=== PATIENT | female | born 1975 | race Caucasian/White ===

== ENCOUNTER 2018-10-16 07:11 | Day surgery (SDC) | payer BC ==
[~2018-10-16] VITALS: Ht 175.3 cm; Wt 78.0 kg
[2018-10-16] VITALS (8 sets, daily range): BP systolic 101–129; BP diastolic 58–77; PULSE 72–88; RESP 18–23; Ht 175.3 cm; Wt 78.0 kg
[~2018-10-16 07:11] MED LIST: AMITRIPTYLINE; BUSPAR; FLEXERIL; FOLIC ACID; GABAPENTIN; LOPID; OMEPRAZOLE; PLAQUENIL; SULINDAC; TYLENOL WITH CODEINE; VIT D; WELLBUTRIN
--- NOTE | 2018-10-16 08:48 | PREAC ---
Date/Time of Note Date/Time of Note DATE: 10/16/18 TIME: 08:46 Anesthesia Eval and Record Evaluation Time Pre-Procedure Interview DATE: 10/16/18 TIME: 08:46 Age 43 Sex female NPO: 8 hrs Preoperative diagnosis Abdominal pain, CBH Planned procedure EGD, Colonoscopy Past Medical History Past Medical History: Includes Musculoskeletal: Other (Fibromyalgia) GI: GERD Surgery & Anesthesia Issues No known issue Meds Anticoagulation: No Beta Salome within 24 hr: No Reason Beta Salome not given: Pt. not on B-Salome Reported Medications [Vit D] No Conflict Check 10/16/18 [Folic Acid] No Conflict Check 10/16/18 [Lopid] No Conflict Check 10/16/18 [Tylenol With Codeine] No Conflict Check 10/16/18 [Buspar] No Conflict Check 10/16/18 [Amitriptyline] No Conflict Check 10/16/18 [Gabapentin] No Conflict Check 10/16/18 [Plaquenil] No Conflict Check 10/16/18 [Flexeril] No Conflict Check 10/16/18 [Wellbutrin] No Conflict Check 10/16/18 [Sulindac] No Conflict Check 10/16/18 [Omeprazole] No Conflict Check 10/16/18 Meds reviewed: Yes Allergies Coded Allergies: duloxetine (Verified Allergy, Severe, SWELLING ON EYES/MOUTH, 10/16/18) Allergies Reviewed: Yes Labs/Studies Labs Reviewed: Reviewed by anesthesiologist test: Negative Studies: ECG Pre-procedure Exam Last vitals BP:112/67, P:78, Spo2:100%, T:98,8 Airway: Adequate mouth opening, Adequate thyromental dist Mallampati: Mallampati II Teeth: Normal Lung: Normal Heart: Normal ASA Physical Status ASA physical status: 2 Emergency: None Planned Anesthetic General/MAC: MAC Planned Pain Management Parenteral pain med Pre-operative Attestations Prior to commencing anesthesia and surgery, the patient was re-evaluated, there was verification of: *The patient's identity *The results of appropriate recent lab work and preoperative vital signs *The above evaluation not changing prior to induction *Anesthetic plan, risk benefits, alternative and complications discussed with patient/family; questions answered; patient/family understands, accepts and wishes to proceed. GENE TYLER MD Oct 16, 2018 08:48
[2018-10-16] MEDS ORDERED: PROPOFOL 60 ML ONE (09:14)
[2018-10-16] MEDS ORDERED: LIDOCAINE 2% (SDV) 5 ML INJ ONE (09:14)
--- NOTE | 2018-10-16 09:45 | PAC ---
Date/Time of Note Date/Time of Note DATE: 10/16/18 TIME: 09:44 Post-Anesthesia Notes Post-Anesthesia Note Activity: WNL Respiratory function: WNL Cardiovascular function: WNL Mental status: Baseline Pain reasonably controlled: Yes Hydration appropriate: Yes Nausea/Vomiting absent: Yes Comments BP:112/67, P:78, Spo2:100%, T:98,9 GENE TYLER MD Oct 16, 2018 09:45
== END 2018-10-16 14:25 | disposition home or self-care (01) ==
LOC: GIL 07:11
PROVIDERS: ATTEND Internal Medicine Gastroenterology
DX: R19.4 Change in bowel habit (principal); K64.8 Other hemorrhoids; K29.50 Unspecified chronic gastritis without bleeding
CPT/HCPCS: 43239; 45380; 84703; Z7610; 88305; 88312